=== PATIENT | female | born 2000 | race Caucasian/White ===

== ENCOUNTER 2020-09-11 14:13 | Emergency (ER) | payer SELFPAY ==
[~2020-09-11] VITALS: Ht 170.2 cm; Wt 96.2 kg
[~2020-09-11 14:13] MED LIST: ADDERALL 20 MG20 MG PO; NAPROSYN500 MG PO; NORCO 5-325 TA1 EACH PO; RITALIN LA10 MG PO; XANAX0.5 MG PO
--- NOTE | 2020-09-11 15:21 | EKG ---
[facility] [address] [place] [address] Signed Normal sinus rhythm with sinus arrhythmia Right axis deviation T wave abnormality, consider inferior ischemia Abnormal ECG No previous ECGs available Confirmed by GERMAN SELLERS MD ([id number]) on 09/11/2020 3:20:52 PM Electronically Signed By: GERMAN SELLERS MD 09/11/20 1521 PATIENT NAME: LETTYMARY Electrocardiogram DATE OF : 89 PHYSICIAN: GERMAN SELLERS MD REPORT #: [id number] REPORT IS CONFIDENTIAL AND NOT TO BE RELEASED WITHOUT AUTHORIZATION
== END 2020-09-11 17:00 | disposition home or self-care (01) ==
LOC: ED 14:13
DX: K21.9 Gastro-esophageal reflux disease without esophagitis (principal); R07.89 Other chest pain
CPT/HCPCS: 36415; 71045; 80053; 83690; 85025; 85379; 93005; 93010; 96372; 99285-25; J1885

== ENCOUNTER 2020-09-25 06:32 | Emergency (ER) | payer OTHER ==
[~2020-09-25] VITALS: Ht 170.2 cm; Wt 124.3 kg
--- OUTSIDE RECORDS SUMMARY | 2020-09-25 06:34 | XMS ---
PreManage Notification: MARY SAENZ Security Political Researcher Events No recent Security Events currently on file CRITERIA MET - [facility] - 2 Visits in 30 Days CARE PROVIDERS Marleen SimmonsP Nurse Practitioner: Family Current PHONE: [phone] Ami has no Care Guidelines for this patient. Jelena VISIT COUNT (12 MO.) 2 [facility] TOTAL 2 NOTE: Visits indicate total known visits. ED/UCC VISIT TRACKING (12 MO.) 09/25/2020 06:33 [facility] TYPE: Emergency COMPLAINT: - LEFT EAR PAIN 09/11/2020 14:14 [facility] TYPE: Emergency COMPLAINT: - CHEST PAIN DIAGNOSES: - Gastro-esophageal reflux disease without esophagitis - Pelvic and perineal pain - Other chest pain INPATIENT VISIT TRACKING (12 MO.) No inpatient visits to display in this time frame [email or web address]
[2020-09-25] MEDS ORDERED: NEOMYCIN-POLYMY10 M1 OTIC (07:18)
== END 2020-09-25 07:30 | disposition home or self-care (01) ==
LOC: ED 06:32
DX: H60.92 Unspecified otitis externa, left ear (principal); Z88.0 Allergy status to penicillin
CPT/HCPCS: 99282